=== PATIENT | female | born 1955 | race Caucasian/White ===

== ENCOUNTER 2019-05-19 11:38 | Day surgery (SDC) | payer MEDICARE, OTHER ==
[2019-05-13 13:17] LABS: BASOPHILS % (AUTO) 0.5 % (0-1); EOSINOPHILS # (AUTO) 0.2 X10'3 (0-0.9); EOSINOPHILS % (AUTO) 2.2 % (0-6); HEMATOCRIT 45.3 % (35.0-45.0); HEMOGLOBIN 15.3 g/dl (12.0-16.0); LYMPHOCYTES # (AUTO) 2.3 X10'3 (1.1-4.8); LYMPHOCYTES % (AUTO) 29.4 % (21-51); MEAN CORPUSCULAR HEMOGLOBIN 28.1 PG (27.0-31.0); MEAN CORPUSCULAR HGB CONC 33.8 g/dL (33.0-36.5); MEAN CORPUSCULAR VOLUME 83.1 FL (78-98); MONOCYTES # (AUTO) 0.4 X10'3 (0-0.9); MONOCYTES % (AUTO) 5.3 % (2-12); NEUTROPHILS # (AUTO) 4.9 X10'3 (1.8-7.7); NEUTROPHILS % (AUTO) 62.6 % (42-75); PLATELET COUNT 240 X10'3 (140-440); RED BLOOD COUNT 5.45 X10'6 (4.20-5.60); RED CELL DISTRIBUTION WIDTH 13.9 % (11.5-14.5); WHITE BLOOD COUNT 7.8 X10'3 (4.5-11.0)
[2019-05-13 13:22] LABS: PARTIAL THROMBOPLASTIN TIME 28 SECONDS (22-32)
[2019-05-13 13:25] LABS: ALBUMIN 3.6 G/DL (3.4-5.0); ANION GAP 7 (8-16); BLOOD UREA NITROGEN 17 MG/DL (7-18); BUN/CREATININE RATIO 21.5 (6.6-38.0); CALCIUM 8.7 MG/DL (8.5-10.1); CHLORIDE 104 MMOL/L (99-107); CREATININE 0.79 MG/DL (0.40-0.90); GLUCOSE 157 MG/DL (70-104); POTASSIUM 3.8 MMOL/L (3.5-5.1); SODIUM 139 MMOL/L (135-145); TOTAL CARBON DIOXIDE 28.2 MMOL/L (24-32); eGFR 73 ML/MIN
[~2019-05-19] VITALS: Ht 165.1 cm; Wt 96.8 kg
[2019-05-19] VITALS (10 sets, daily range): BP systolic 146–183; BP diastolic 62–83
[2019-05-19] MEDS ORDERED: diphenhydrAMINE 25mg capsule PO PRN (11:55)
[2019-05-19] MEDS ORDERED: LORazepam 0.5 MG tablet PO PRN (11:55)
[2019-05-19] MEDS ORDERED: normal saline 1,000 ML IV SCH (11:55)
[2019-05-19] MEDS ORDERED: LIDOcaine/PRILOcaine 5gm cream TP ONE (11:55)
[2019-05-19] MEDS ORDERED: CALC-1197 PO (12:45)
[2019-05-19] MEDS ORDERED: AMLO2.5T5 PO (12:45)
[2019-05-19] MEDS ORDERED: ASPI81TA52 PO (12:45)
[2019-05-19] MEDS ORDERED: FLAX100015 PO (12:45)
[2019-05-19] MEDS ORDERED: ATOR40TA PO (12:45)
[2019-05-19] MEDS ORDERED: iohexol 350MG/ML 100ml bottle IV ONE ×2 (14:04→15:17)
[2019-05-19] MEDS ORDERED: fentaNYL/PF 50MCG/1 ML 2ML syringe ONE (14:04)
[2019-05-19] MEDS ORDERED: midazolam 2 mg/2 ml injection ONE (14:04)
[2019-05-19] MEDS ORDERED: LIDOcaine 1% (10mg/ml)w/preservative injection 20ml MDV ONE (14:04)
[2019-05-19] MEDS ORDERED: nitroGLYCERIN-Tridil 50MG/D5W 250 ML IV ONE (14:05)
[2019-05-19] MEDS ORDERED: verapamil 2.5 mg/ml inj IV ONE (14:05)
[2019-05-19] MEDS ORDERED: heparin 1,000unit/ml 10ml vial 10 ML ONE ×2 (14:05→15:17)
[2019-05-19] MEDS ORDERED: ticagrelor 90mg tablet ONE (15:17)
[2019-05-19] MEDS ORDERED: OXAZEpam 15mg capsule PO PRN (16:35)
[2019-05-19] MEDS ORDERED: proCHLORperazine 10 MG/2 ml inj IV PRN (16:35)
[2019-05-19] MEDS ORDERED: ondansetron/PF 4mg/2ml inj IV PRN (16:35)
== END 2019-05-19 19:40 | disposition home or self-care (01) ==
LOC: SSTAY O 11:38
PROVIDERS: ATTEND Internal Medicine Interventional Cardiology
DX: I25.10 Atherosclerotic heart disease of native coronary artery without angina pectoris (principal); I10 Essential (primary) hypertension; E78.5 Hyperlipidemia, unspecified; Z79.899 Other long term (current) drug therapy; Z98.890 Other specified postprocedural states; Z87.891 Personal history of nicotine dependence; Z79.01 Long term (current) use of anticoagulants
CPT/HCPCS: 36415; 80048; 85025; 85610; 85730; 93005; 93458; 99152; 99153; A6257; C1725; C1769; C1874; C9600; J1644; J2001; J2250; J3010; J7030; Q0163; Q9967; A4620; C1760; C9601; J3490